=== PATIENT | female | born 1990 | race Hispanic/Latino ===

== ENCOUNTER 2022-02-22 23:50 | Emergency (ER) | payer MEDICAID, OTHER ==
[~2022-02-22] VITALS: Ht 154.9 cm; Wt 140.2 kg
[~2022-02-22 23:50] MED LIST: PREN-64 PO
[2022-02-23] MEDS ORDERED: L.E.T. GEL 3ML SYG TP ONE (00:30)
[2022-02-23 00:35] LABS: BASOPHILS % (AUTO) 0.2 % (0.0-5.0); EOSINOPHILS % (AUTO) 0.5 % (0.0-8.0); HEMATOCRIT 39.3 % (36-48); LYMPHOCYTES % (AUTO) 13.2 % (21.0-51.0); MEAN CORPUSCULAR HEMOGLOBIN 25.7 pg (27.0-33.0); MEAN CORPUSCULAR HGB CONC 31.8 g/dL (32.0-36.0); MEAN CORPUSCULAR VOLUME 80.9 fL (79-99); MONOCYTES % (AUTO) 5.4 % (3.0-13.0); NEUTROPHILS % (AUTO) 80.4 % (40.0-77.0); PLATELET COUNT (AUTO) 388 K/uL (130-400); RED BLOOD CELL COUNT(AUTO) 4.86 MIL/uL (4.00-5.50); RED CELL DISTRIBUTION WIDTH 13.9 % (11.0-15.5); WHITE BLOOD COUNT (AUTO) 12.6 K/uL (4.8-10.8)
[2022-02-23 00:41] LABS: CREATININE 0.7 mg/dL (0.5-1.5); POTASSIUM 4.3 mmol/L (3.5-5.1)
[2022-02-23 00:52] LABS: ALBUMIN 3.6 g/dL (3.5-5.0); BILIRUBIN,TOTAL 0.2 mg/dL (0.2-1.0); TOTAL PROTEIN, SERUM 8.7 g/dL (6.0-8.3)
[2022-02-23 00:53] LABS: APPEARANCE,URINE Clear (CLEAR); BILIRUBIN,URINE Negative (NEGATIVE); COLOR,URINE Yellow (YELLOW); GLUCOSE, URINE (UA) Negative (NEGATIVE); KETONES,URINE Negative (NEGATIVE); LEUKOCYTE ESTERASE ,URINE Trace (NEGATIVE); NITRATE,URINE Negative (NEGATIVE); OCCULT BLOOD,URINE Negative (NEGATIVE); PROTEIN,URINE Negative (NEGATIVE)
[2022-02-23 01:06] LABS: BACTERIA,URINE Rare /HPF (None Seen); SQUAMOUS EPITHELIAL CELL,UR Moderate /HPF (0-2); WBC,URINE 0-1 /HPF (0-1)
[2022-02-23 01:07] LABS: RBC,URINE 0-1 /HPF (0-1)
[2022-02-23] MEDS ORDERED: SULFAMETHOX-TMP DS 800/160 TAB PO ONE (01:30)
[2022-02-23 01:40] VITALS: BP 159/90
[2022-02-23] MEDS ORDERED: SULF1TAB42 PO (01:40)
== END 2022-02-23 01:51 | disposition home or self-care (01) ==
LOC: EDH 23:50
DX: L02.211 Cutaneous abscess of abdominal wall (principal)
CPT/HCPCS: 10060; 36415; 80053; 81001; 81025; 84702; 85025

== ENCOUNTER 2023-01-26 12:31 | Emergency (ER) | payer MEDICAID, OTHER ==
[~2023-01-26] VITALS: Ht 157.5 cm; Wt 129.3 kg
[~2023-01-26 12:31] MED LIST changes: +SULF1TAB42 PO
[2023-01-26 13:35] LABS: BASOPHILS % (AUTO) 0.1 % (0.0-5.0); EOSINOPHILS % (AUTO) 0.9 % (0.0-8.0); HEMATOCRIT 35.5 % (36-48); MEAN CORPUSCULAR HEMOGLOBIN 27.2 pg (27.0-33.0); MEAN CORPUSCULAR HGB CONC 34.4 g/dL (32.0-36.0); MEAN CORPUSCULAR VOLUME 79.2 fL (79-99); MONOCYTES % (AUTO) 6.9 % (3.0-13.0); NEUTROPHILS % (AUTO) 75.9 % (40.0-77.0); PLATELET COUNT (AUTO) 339 K/uL (130-400); RED BLOOD CELL COUNT(AUTO) 4.48 MIL/uL (4.00-5.50); RED CELL DISTRIBUTION WIDTH 14.6 % (11.0-15.5); WHITE BLOOD COUNT (AUTO) 9.4 K/uL (4.8-10.8)
[2023-01-26 13:48] LABS: CREATININE 0.8 mg/dL (0.5-1.5); POTASSIUM 3.6 mmol/L (3.5-5.1)
[2023-01-26 13:52] LABS: ALBUMIN 3.4 g/dL (3.5-5.0); TOTAL PROTEIN, SERUM 7.8 g/dL (6.0-8.3)
[2023-01-26 15:47] VITALS: BP 140/61
== END 2023-01-26 15:48 | disposition home or self-care (01) ==
LOC: EDH 12:31
DX: O26.891 Other specified pregnancy related conditions, first trimester (principal); R10.9 Unspecified abdominal pain; Z3A.10 10 weeks gestation of pregnancy; W01.0XXA Fall on same level from slipping, tripping and stumbling without subsequent striking against object, initial encounter; Y93.89 Activity, other specified; Y92.89 Other specified places as the place of occurrence of the external cause; Y99.8 Other external cause status
CPT/HCPCS: 36415; 76801; 80053; 81025; 85025

== ENCOUNTER 2023-02-15 06:53 | Emergency (ER) | payer MEDICAID ==
[~2023-02-15] VITALS: Ht 152.4 cm; Wt 103.4 kg
[2023-02-15 06:59] VITALS: BP 139/80
[2023-02-15] MEDS ORDERED: 0.9%NACL 1000ML 1,000 ML IV ONE (07:30)
[2023-02-15 07:41] LABS: BASOPHILS % (AUTO) 0.2 % (0.0-5.0); EOSINOPHILS % (AUTO) 0.8 % (0.0-8.0); HEMATOCRIT 38.3 % (36-48); LYMPHOCYTES % (AUTO) 14.8 % (21.0-51.0); MEAN CORPUSCULAR HEMOGLOBIN 26.8 pg (27.0-33.0); MEAN CORPUSCULAR HGB CONC 33.2 g/dL (32.0-36.0); MONOCYTES % (AUTO) 4.5 % (3.0-13.0); NEUTROPHILS % (AUTO) 79.4 % (40.0-77.0); PLATELET COUNT (AUTO) 354 K/uL (130-400); RED BLOOD CELL COUNT(AUTO) 4.73 MIL/uL (4.00-5.50); RED CELL DISTRIBUTION WIDTH 13.9 % (11.0-15.5); WHITE BLOOD COUNT (AUTO) 10.3 K/uL (4.8-10.8)
[2023-02-15 08:11] LABS: APPEARANCE,URINE CLEAR (CLEAR); BILIRUBIN,URINE NEGATIVE (NEGATIVE); COLOR,URINE LIGHT-YELLOW (YELLOW); GLUCOSE, URINE (UA) NEGATIVE (NEGATIVE); KETONES,URINE NEGATIVE (NEGATIVE); LEUKOCYTE ESTERASE ,URINE NEGATIVE Leu/uL (NEGATIVE); MUCUS,URINE RARE LPF (None Seen); NITRATE,URINE NEGATIVE (NEGATIVE); OCCULT BLOOD,URINE NEGATIVE (NEGATIVE); PH,URINE 6.5 (5.0-8.0); PROTEIN,URINE NEGATIVE (NEGATIVE); RBC,URINE 0-1 /HPF (0-1); UROBILINOGEN,URINE 0.2 mg/dL (0.2-1.0)
[2023-02-15 08:14] LABS: HCG,QUALITATIVE URINE POSITIVE (NEGATIVE)
[2023-02-15 08:19] LABS: SQUAMOUS EPITHELIAL CELL,UR FEW /HPF (0-2)
[2023-02-15 08:30] LABS: ALBUMIN 3.4 g/dL (3.5-5.0); CREATININE 0.6 mg/dL (0.5-1.5)
[2023-02-15] MEDS ORDERED: ACET-66 PO (10:34)
== END 2023-02-15 10:48 | disposition home or self-care (01) ==
LOC: EDH 06:53
DX: O20.0 Threatened abortion (principal); O26.891 Other specified pregnancy related conditions, first trimester; O24.111 Pre-existing type 2 diabetes mellitus, in pregnancy, first trimester; Z3A.13 13 weeks gestation of pregnancy; Z98.890 Other specified postprocedural states
CPT/HCPCS: 99284; 96360; 76801; 80053; 84702; 85025; 81001; 81025; 36415; J7030